=== PATIENT | male | born 1950 | race African-American/Black ===

== ENCOUNTER 2017-03-06 10:10 | Emergency (ER) | payer BC, MEDICARE ==
[~2017-03-06] VITALS: Ht 160 cm; Wt 81.6 kg
[~2017-03-06 10:10] MED LIST: AMOX1TAB61 PO; AMOX500C PO; ATORVASTATIN CA80 MG PO; LISI-334 PO; LISI2.5T PO; SERT50TA8 PO
[2017-03-06] MEDS ORDERED: ONDANSETRON ODT 4 MG TAB.RAPDIS. PO ONE (10:45)
--- NOTE | 2017-03-06 10:50 | EKG ---
[facility] [address] [place] [address] Test Date: 2017-03-06 Test Time: 10:26:47 Pat Name: WYATT YEE Department: Room: Gender: M Kennel Keeper: : 1950 Requested By: MELITA HANKS Order Number: [id number] Reading MD: Yumiko Mo Measurements Intervals [place] Rate: 86 P: 46 AL: 158 QRS: -40 QRSD: 78 T: 30 QT: 368 QTc: 443 Interpretive Statements SINUS RHYTHM LEFT ANTERIOR FASCICULAR BLOCK NORMAL ECG Electronically Signed On 03-06-2017 20:52:02 CDT by Yumiko Mo
[2017-03-06] MEDS ORDERED: DIPHTH,PERTUSS(ACELL),TET TOX 0.5 ML DISP.SYRIN. VAX IM ONE (11:00)
--- NOTE | 2017-03-06 11:00 | PHYS DOC ---
Past Medical History Past Medical History: Depression, GERD, High Cholesterol, Hypertension, Other Additional Past Medical Histor: OBESITY Past Surgical History: Tubal ligation, Other Additional Past Surgical Histo: brain surgery- noncancerous tumor; pituatary gland tumor removed Alcohol Use: None Drug Use: None Adult General Chief Complaint Chief Complaint: SYNCOPE HPI HPI Patient is a 66 year old female who presents with ear laceration after a fall. Patient was at home when she was laying down as her attempted to remove her back packing from an abscess a restrained yesterday by Dr. Oreilly. As he was slowly attempting to remove the packing, the patient reported that she felt very weak secondary to pain. She laid down and then suddenly felt that she needed to have a bowel movement, suddenly got up and then passed out. Patient struck her head on a neighboring object. She immediately woke up, the bleeding was controlled of the year and he came to the hospital for evaluation. Denies any blood thinners, only has pain over her ear at this time. Unsure of her last tetanus immunization, no chest pain or shortness of breath. She was experiencing nausea which is mild at this time. She is not currently on antibiotics. Review of Systems Review of Systems Constitutional: Denies fever or chills [] Eyes: Denies change in visual acuity, redness, or eye pain [] HENT: Denies nasal congestion or sore throat [] Respiratory: Denies cough or shortness of breath [] Cardiovascular: Denies chest pain GI: Denies abdominal pain, vomiting, bloody stools or diarrhea [] : Denies dysuria or hematuria [] Musculoskeletal: Denies back pain or joint pain [] Integument: Per history of present illness Neurologic: Denies headache, focal weakness or sensory changes [] Current Medications Current Medications Current Medications Medications (Trade) Dose Ordered Sig/Nay Start Time Stop Time Status Last Admin Dose Admin Diphtheria/ Tetanus/Acell Pertussis (Boostrix) 0.5 ml ONCE ONCE 03/06/17 11:00 03/06/17 11:01 DC 03/06/17 11:59 0.5 ML Ondansetron HCl (Zofran Odt) 4 mg 1X ONCE 03/06/17 10:45 03/06/17 10:50 DC 03/06/17 11:03 4 MG Allergies Allergies Allergies Coded Allergies Type Severity Reaction Last Updated Verified oxymetazoline Allergy Intermediate HIVES 08/17/16 Yes phenytoin Allergy Intermediate RASH 08/17/16 Yes Physical Exam Physical Exam Constitutional: Well developed, well nourished, no acute distress, non-toxic appearance. [] HENT: Normocephalic, 2 linear lacerations are healing to the lobe of the right ear, no mastoid tenderness, no hemotympanum, bilateral external ears normal, oropharynx moist, no oral exudates, nose normal. [] Eyes: PERRLA, EOMI, conjunctiva normal, no discharge. [] Neck: Normal range of motion, no tenderness, supple, no stridor. [] Cardiovascular:Heart rate regular with regular rhythm, no murmur [] Lungs & Thorax: Bilateral breath sounds clear to auscultation, no wheeze or crackles Abdomen: soft, no tenderness, no masses, no pulsatile masses. [] Skin: Warm, dry, no erythema, no rash. [] Back: No midline Step-off or tenderness, open wound RU back , packing removed and no significant surrounding erythema or drainage. mild ttp Extremities: No tenderness, no cyanosis, no clubbing, ROM intact, no edema. [] Neurologic: Alert and oriented X 3, normal motor function, normal sensory function, no focal deficits noted. [] Psychologic: Affect normal, judgement normal, mood normal. [] Current Patient Data Vital Signs Vital Signs Date Time Temp Pulse Resp B/P Pulse Ox O2 Delivery O2 Flow Rate FiO2 03/06/17 11:51 84 18 102/59 99 Room Air 03/06/17 10:26 96.9 96.9 EKG EKG 86 beats per Minute, sinus, leftward axis, normal intervals, no ST elevation or depression, nonischemic T waves, interpreted by me [] Radiology/Procedures Radiology/Procedures [] Course & Med Decision Making Course & Med Decision Making Pertinent Labs and Imaging studies reviewed. (See chart for details) patients presents with symptoms typical of a vasovagal syncopal episode. T dap was given, Zofran ODT for mild nausea. Based on exam, no clear indication for radiographs at this time. We will watch the patient for any worsening symptoms. Patient symptoms improved, she was able to and without difficulty. Patient requests to go home. Wound care instructions given, follow-up with Dr. Oreilly for her back abscess. Return precautions given Dragon Disclaimer Dragon Disclaimer This electronic medical record was generated, in whole or in part, using a voice recognition dictation system. Departure Departure Impression: Primary Impression: Vasovagal syncope Referrals: TRACI BARCENAS MD (PCP) Patient Instructions: Syncope MELITA HANKS MD March 06, 2017 11:00
[2017-03-06 11:51] VITALS: BP 102/59
== END 2017-03-06 12:35 | disposition home or self-care (01) ==
LOC: ER 10:10
DX: S01.311A Laceration without foreign body of right ear, initial encounter (principal); R55 Syncope and collapse; F32.9 Major depressive disorder, single episode, unspecified; I10 Essential (primary) hypertension; K21.9 Gastro-esophageal reflux disease without esophagitis; E78.00 Pure hypercholesterolemia, unspecified; E66.9 Obesity, unspecified; Z88.8 Allergy status to other drugs, medicaments and biological substances
CPT/HCPCS: 90471; 90715; 93005; 99283; Q0162

== ENCOUNTER → 2019-02-09 | Outpatient (CLI) | payer MEDICARE ==
--- NOTE | 2019-02-10 10:27 | KCIC ---
Bilateral digital screening mammograms: Reason for examination: Routine screening. Comparison is made to previous studies dated 01/17/2013 01/17/2012. Interpretation was made with the benefit of CAD. The skin and nipples show no abnormalities. No abnormal axillary lymph nodes are seen. The breast parenchyma shows scattered fibroglandular density. (Breast density: Category B.) There continue to be small nodular parenchymal densities in the upper outer quadrant of the left breast consistent with intramammary lymph nodes which are stable. There are no new dominant masses, suspicious calcifications or architectural distortions. A few benign calcifications are present. Impression: No evidence of malignancy. Recommend routine screening. BI-RADS category 2: Benign "Our facility is accredited by the [employer] Mammography Program." This patient's information has been entered into a reminder system for the patient to be notified with the results of her examination and a target date for the next mammogram. Electronically signed by: Camryn Castro MD (02/10/2019 10:24 AM) [id number]
== END | disposition home or self-care (01) ==
LOC: KCIC MAMMO 17:19
PROVIDERS: ATTEND Internal Medicine
DX: Z12.31 Encounter for screening mammogram for malignant neoplasm of breast (principal)
CPT/HCPCS: 77067